=== PATIENT | female | born 1990 | race African-American/Black ===

== ENCOUNTER → 2020-11-10 | Emergency (ER) | payer OTHER ==
[~2020-11-10] VITALS: Ht 165.1 cm; Wt 65.8 kg
== END | disposition home or self-care (01) ==
LOC: ER 22:41
DX: S91.322A Laceration with foreign body, left foot, initial encounter (principal); W45.8XXA Other foreign body or object entering through skin, initial encounter; Y93.89 Activity, other specified; Y92.59 Other trade areas as the place of occurrence of the external cause; Y99.8 Other external cause status